=== PATIENT | female | born 1995 | race Caucasian/White ===

== ENCOUNTER 2020-01-19 16:02 | Outpatient (CLI) | payer SELFPAY ==
[~2020-01-19] VITALS: Ht 165.1 cm; Wt 93.6 kg
[2020-01-19 16:12] VITALS: BP 116/65
[2020-01-19] MEDS ORDERED: EFFE75CA2 PO (16:22)
[2020-01-19] MEDS ORDERED: PREN29TA4 PO (16:22)
[2020-01-19] MEDS ORDERED: ACET1TAB55 PO (16:22)
[2020-01-19] MEDS ORDERED: LOVE1INJ SC (16:22)
--- NOTE | 2020-01-19 22:21 | HPE ---
DATE OF ADMISSION: 01/19/2020 This is a 24-year-old 10, para 3, abortio 6, last menstrual period (LMP) 06/21/2019, estimated date of confinement 03/27/2020, at 30 and 2 weeks of gestation with a history of pelvic pressure, and has had a history of one delivery. Risk factors is she has had a previous section. She has had a late transfer of care. She has protein S deficiency, celiac disease, depression, on the Effexor, Rh negative, obesity, body mass index (BMI) is 31.2. Presently on Lovenox 40 and Effexor 75 extended release. PAST HISTORY: In 2016, at 39 weeks, spontaneous delivery, 8 pounds, required a revision of a fourth degree tear times two. In 2017, at 35 weeks, section, labor with premature rupture of membranes (PPROM), 6 pounds 5 ounces, baby is autistic. 2011 at 39 weeks, spontaneous vaginal delivery, 7 pounds 0 ounces, baby is autistic. Spontaneous , all occurred at 6+ weeks, two are methotrexate induced and four were spontaneous with no issues. Labs are O negative, HIV negative, RPR negative, rubella immune, hepatitis negative. Pap normal. Gonorrhea and chlamydia are negative. 1-hour glucose 124. [place] 21 was negative. On examination, no distress. She has multiple bruises on her abdomen from her injections. She is severely depressed despite the fact being on Effexor. Ultrasound indicated the YAYO was normal at 15.5. Symphysis fundus height was 30, vertex presenting. Cervix by endovaginal is 3.39 cm, with fundal pressure changed to 3.29. FFN was done. Digital examination: The cervix is closed, posterior, and the presenting part is high. Ultrasound, again, showed good movement. Blood pressure 116/65, respirations are 20, pulse 110, temperature is 97.3. Urine 1.015, pH is 7 and negative. Precautions were given. The patient has an appointment with [facility] in the near future. The patient was discharged undelivered.
== END 2020-01-19 17:56 | disposition home or self-care (01) ==
LOC: M LDO 16:02
PROVIDERS: ATTEND Obstetrics & Gynecology
DX: O26.893 Other specified pregnancy related conditions, third trimester (principal); R10.2 Pelvic and perineal pain; O99.343 Other mental disorders complicating pregnancy, third trimester; F32.9 Major depressive disorder, single episode, unspecified; Z67.41 Type O blood, Rh negative; Z3A.30 30 weeks gestation of pregnancy
CPT/HCPCS: 59025; 76815; 82731; G0378; G0463

== ENCOUNTER 2020-01-22 10:00 | Outpatient (CLI) | payer OTHER ==
[~2020-01-22] VITALS: Ht 165.1 cm; Wt 93.6 kg
[~2020-01-22 10:00] MED LIST: ACET1TAB55 PO; EFFE75CA2 PO; LOVE1INJ SC; PREN29TA4 PO
[2020-01-22 10:23] VITALS: BP 128/69
--- NOTE | 2020-01-23 13:52 | IPNPDOC ---
Text Note Date of Service The patient was seen on 01/23/20. NOTE seen and examined on 01/22/20 Patient is a 24 yo @30+wks gestation presents to L&D with concern for abdominal trauma. her child ran into her abdomen at 1000 this AM. patient reports this made her back pain worse and she is having cramping. denies LOF/VB . +FM vitals: normal nad abd: gravid, soft, nt le: no edema/erythema/tender fht: 130/mod neno/no accel/no decel TOCO: quiet a/p patient s/p minor trauma to abdomen, monitored for over 4hrs, no contractions, bleeding or discharge. patient given return precautions. f/u with regularly scheduled appointments. DO Aarti VS,Malena, I+O VS, Malena, I+O Vital Signs Date Time Temp Pulse Resp B/P (MAP) Pulse Ox O2 Delivery O2 Flow Rate FiO2 01/22/20 10:23 96.9 110 18 128/69 (88) Room Air YOBANY WATSON DO Jan 23, 2020 13:52
== END 2020-01-22 14:30 | disposition home or self-care (01) ==
LOC: M LDO 10:00
PROVIDERS: ATTEND Obstetrics & Gynecology
DX: Z04.3 Encounter for examination and observation following other accident (principal); W50.0XXA Accidental hit or strike by another person, initial encounter; Y93.9 Activity, unspecified; Y92.9 Unspecified place or not applicable; Y99.9 Unspecified external cause status
CPT/HCPCS: 59025; G0378; G0463

== ENCOUNTER 2020-02-06 08:28 | Inpatient (IN) | payer OTHER ==
[~2020-02-06] VITALS: Ht 165.1 cm; Wt 94.0 kg
[2020-02-06] VITALS (28 sets, daily range): BP systolic 92–122; BP diastolic 50–70
[2020-02-06] MEDS ORDERED: CALCIUM GLUCONATE 1,000 MG in D5W MINI-BAG PLUS 100 ML IV PRN (09:30)
[2020-02-06] MEDS ORDERED: MAG Sulf (L&D) 4 GM/100 ML 4 GM in IV 1 EA IV ONE (09:30)
[2020-02-06] MEDS ORDERED: TERBUTALINE SULFATE 1 MG/ML VIAL (J3105) SC SCH (09:30)
[2020-02-06] MEDS ORDERED: AMPICILLIN SOD 2 GM in D5W MINI-BAG PLUS 100 ML IV ONE (09:30)
[2020-02-06] MEDS: LR 1,000 ML IV SCH ×2 (10:38→17:32)
[2020-02-06] MEDS: BETAMETHASONE SOLUSPAN 6MG/ML 5ML VIAL (J0702 PER 3MG) IM SCH (10:52)
[2020-02-06 10:57] LABS: BASO % 0.3 % (0.0-1.0); EOS # 0.2 10^3/uL (0.0-0.5); EOS % 1.4 % (0.0-3.0); HEMOGLOBIN 12.4 g/dl (12.0-15.5); LYMPH # 1.5 10^3/uL (1.5-5.0); LYMPH % 12.6 % (24.0-44.0); MEAN CORPUSCULAR HEMOGLOBIN 29.8 pg (27.0-33.0); MEAN CORPUSCULAR HGB CONC 33.5 g/dl (32.0-36.5); MEAN CORPUSCULAR VOLUME 88.9 fl (80.0-96.0); MONO # 0.7 10^3/uL (0.0-0.8); MONO % 6.4 % (0.0-5.0); NEUTROPHILS % 78.1 % (36.0-66.0); PLATELET COUNT, AUTOMATED 226 10^3/uL (150-450); RED BLOOD COUNT 4.16 10^6/uL (4.00-5.40); WHITE BLOOD COUNT 11.5 10^3/uL (4.0-10.0)
[2020-02-06] MEDS: MAG Sulf (OBGYN) 20GM/500ML 20,000 MG in IV 1 EA IV SCH ×2 (11:16→20:50)
[2020-02-06 11:24] LABS: MAGNESIUM LEVEL 1.9 MG/DL (1.8-2.4)
--- NOTE | 2020-02-06 11:56 | REP ---
OB ULTRASOUND: Real-time sonographic evaluation of the gravid uterus is performed. There is a single living intrauterine gestation. The estimated gestational age is reportedly 32 weeks 6 days, EDC 03/27/2020. Today's measurements indicate appropriate growth. Biometry and Growth: BPD 86 mm = 34 weeks 3 days, 73rd percentile HC 315 mm = 35 weeks 3 days, 87th percentile AC 307 mm = 35 weeks 5 days, 77th percentile FL 65 mm = 33 weeks 2 days, 56th percentile HC/AC ratio 1.03 within normal range of 0.95 to 1.14. Estimated weight 2409 grams, 73rd percentile. Cervical length: Cervix could not be visualized. heart rate: 128 beats per minute. position: Vertex. Placenta: Anterior and grade 1 with no previa or abruption. Amniotic fluid: There is anhydramnios with no amniotic fluid present, YAYO is 0. Biophysical profile score: 6/8 with no points for amniotic fluid volume. S/D ratio: 2.58, normal range 2.05 to 3.05. RI: 0.61, normal range 0.59 to 0.75. Visualized anatomy today includes four-chamber heart, stomach, kidneys, bladder, and spine, which are grossly unremarkable. Electronically Signed by Sam Kaufman MD 02/08/2020 11:07 P
--- NOTE | 2020-02-06 13:27 | HPEPDOC ---
Obstetrical History & Physical General Date of Admission Feb 06, 2020 at 09:13 History of Present Illness S: Jessica is a 24yo at 32+6 weeks gestation, EDC [id number] by LMP/1TUS, who is being admitted to [facility] for PPROM. Pt reports that she woke up and noticed she was leaking copious fluid at 0730 this morning. She reports intercourse last night, but states she has also soaked two overnight menstrual pads. She has also been feeling mild contractions since ROM. complicated by the following: Protein S deficiency (on Lovenox, last administered [id number] in the evening) Rh Negative (O negative, rhogam administered [id number]) History of 35 week section (two previous , uncomplicated) Obesity and Excessive Weight Gain Chief Complaint: Rupture of membranes Information Provided By: Patient Age: 24 : 10 Term: 2 Pre-term: 1 Abortions: 6 Livin Care Care: Good Care Number of Visits: 5 Dating Final EDC: Mar 27, 2020 Final EDC for Daily Update: Mar 27, 2020 Final EDC by: LMP Antepartum Course Height (inches): 65 Pre- weight (lbs.): 181 Admission Weight (lbs.): 208 Change in Weight (lbs.): 27 Past Medical History Past Obstetrical History : Past Obstetrical History: Multigravida Complications: Yes (4th degree laceration with 2nd that required perineal revision.) 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 Past Medical History Medical History Protein S Deficiency Celiac Disease Obese Surgical History: section, Other Family History Significant Family History: No pertinent family hx Social History Marital Status: Family situation: Spouse/partner home Psychosocial History: Depression * Smoker: non-smoker Alcohol: Denies Drugs: denies Imunizations Tdap status: current Allergies Coded Allergies: NUTS (Verified Allergy, Severe, 01/19/20) latex (Verified Allergy, Intermediate, rash, 01/19/20) gluten (Verified Allergy, Mild, 01/19/20) Medications Scheduled Prenat 115/Iron Fum/Folic/Dss ( 19 Tablet) 1 Each Tablet, 1 TAB PO DAILY Venlafaxine HCl (Effexor Xr) 75 Mg Cap.er.24h, 1 CAP PO DAILY Miscellaneous Medications Enoxaparin Sodium (Lovenox) 40 Mg/0.4 Ml Syringe, 40 MG SC Physical Examination Physical Examination GENERAL: Alert and oriented times three. ABDOMEN: Gravid and non-tender to touch. FETUS: Is vertex (VTX) by sterile vaginal examination and by formal growth US. HEART RATE: Regular rate. LUNGS: Observed nonlabored breathing. EXTREMITIES: No edema. Other physical findings O: VSS, afebrile, normotensive FHR 140s, minimal variability (has had adequate moderate variability prior to magnesium), No current accels or decels CTX: occasional noted on TOCO VE: /- SSE: copius amniotic fluid in vaginal vault BPP: 68 d/t no amniotic fluid; EFW 2409g Vital Signs/I&O Vital Signs Date Time Temp Pulse Resp B/P (MAP) Pulse Ox O2 Delivery O2 Flow Rate FiO2 02/06/20 13:00 98.1 18 02/06/20 12:59 93 109/62 (78) Laboratory Data 24H LABS Laboratory Tests 2 02/06/20 09:31: Serology Scanned Report Hepatitis B Testing 02/06/20 10:30: Immature Granulocyte % (Auto) 1.2, Neutrophils (%) (Auto) 78.1H, Lymphocytes (%) (Auto) 12.6L, Monocytes (%) (Auto) 6.4H, Eosinophils (%) (Auto) 1.4, Basophils (%) (Auto) 0.3, Neutrophils # (Auto) 9.0H, Lymphocytes # (Auto) 1.5, Monocytes # (Auto) 0.7, Eosinophils # (Auto) 0.2, Basophils # (Auto) 0.0, Nucleated Red Blood Cells % (auto) 0.0, Magnesium Level 1.9, Syphilis Serology NONREACTIVE 02/06/20 12:25: CBC/BMP Laboratory Tests 02/06/20 10:30 Microbiology Microbiology 02/06/20 Group B Streptococcus Screen (NIGEL), Received Pending 02/06/20 Wet Prep, Received Pending Pertinent Laboratoy Data Blood Type: O- RBC Antibody Screen: Positive HIV: Negative Hepatitis B: Negative Rapid Plasma Reagin: Nonreactive Rubella: Immune Varicella: Immune Chlamydia/Gonorrhea: Negative Group B Streptococcus: Unknown Quad Screen Test: Negative Cystic Fibrosis: Negative Anatomy Ultrasound Ultrasound Date: Nov 18, 2019 Placenta Location: Anterior Normal Anatomy: Yes Placenta Previa: No Other Ultrasounds [id number] - f/u for missing images: still some inadequate facial views, but appears to be grossly unremarkable. Steroid Therapy Steroid Therapy: Yes Date #1: Feb 06, 2020 (Initial dose) Vaginal Examination Presentation: Cephalic presentation Assessment/Plan Assessment A: Jessica is a 24yo at 32+6wks admitted for PPROM, clear fluid, VSS, afebrile. GBS unknown. O Negative Blood Type. Protein S deficiency, last dose of Lovenox [id number]. Currently Category II FHT d/t minimal variability, but overall reassuring. Plan P: Pt consented for admission by Dr. Lewis (see note) PIV start, admission labs collected Wet Prep, GBS collected, urine tox screen and UC collected Growth US and BPP Start Ampicillin Start Magnesium Sulfate STOP Lovenox Start Betamethasone Clear liquid diet CEFM x2 Can administer terb if starts everadro Plan for repeat C/S when appropriate Comanage with OB SAVANNAH GONGORA CNM Feb 06, 2020 13:27
[2020-02-06] MEDS: AMPICILLIN SOD 1 GM in D5W 50 ML IV SCH ×3 (13:54→22:02)
--- NOTE | 2020-02-06 14:31 | IPNPDOC ---
Text Note Date of Service The patient was seen on 02/06/20. NOTE I d/w patient options of TOLAC vs delivery if PTL occurs. She under stands risks of infection, bleeding needing a blood transfusion (risk of reaction, infectious dz), damage to adjacent structures including baby, scarring, future pain, anesthesia reaction, , and need for future sections. She desires a repeat section with BTL. She understands that BTL is permanent infertility, failure rate of 1/250, and regreat possibility with age <30yo. VS,Fishbone, I+O VS, Fishbone, I+O Laboratory Tests 02/06/20 10:30 Vital Signs Date Time Temp Pulse Resp B/P (MAP) Pulse Ox O2 Delivery O2 Flow Rate FiO2 02/06/20 13:00 98.1 18 02/06/20 12:59 93 109/62 (78) Bina Lewis MD Feb 06, 2020 14:31
[2020-02-06 16:14] LABS: AMPHETAMINES URINE REFLEX NEGATIVE (NEGATIVE); BARBITURATES URINE REFLEX NEGATIVE (NEGATIVE); BENZODIAZEPINES URINE REFLEX NEGATIVE (NEGATIVE); CANNABINOIDS URINE REFLEX NEGATIVE (NEGATIVE); COCAINE METABOLITE URINE REFLE NEGATIVE (NEGATIVE); METHADONE URINE REFLEX NEGATIVE (NEGATIVE); OPIATES URINE REFLEX NEGATIVE (NEGATIVE); PHENCYCLIDINE URINE REFLEX NEGATIVE (NEGATIVE)
[2020-02-06] MEDS: ACETAMINOPHEN 500 MG TAB PO PRN (20:50)
[2020-02-06] MEDS: VENLAFAXINE **XR** 75MG CAPSULE PO SCH (20:52)
[2020-02-07] VITALS (32 sets, daily range): BP systolic 83–118; BP diastolic 46–60
[2020-02-07] MEDS: AMPICILLIN SOD 1 GM in D5W 50 ML IV SCH ×6 (02:44→22:00)
--- NOTE | 2020-02-07 03:06 | IPNPDOC ---
Text Note Date of Service The patient was seen on 02/07/20. NOTE S: Min LOF continues. No VB. +FM. No contractions. O: AF, VS WNL ABD gravid, NT SVE Deferred LE NT, SCDS in place FHT: Category 1, 120s, reactive, no decels, rare ctx A/P: 24yo at 33.0wks HD 2. She is s/p Dexa x1, US 02/06/2020 vtx, YAYO 0, EFW consistent. Day 2 of Ampicillin for latent Abx tx and will continue. On magnesium sulfate for neuroprotection and will continue. Continue to observe. VS,Fishbone, I+O VS, Fishbone, I+O Laboratory Tests 02/06/20 10:30 Vital Signs Date Time Temp Pulse Resp B/P (MAP) Pulse Ox O2 Delivery O2 Flow Rate FiO2 02/06/20 13:00 98.1 18 02/06/20 12:59 93 109/62 (78) Bina Lewis MD Feb 06, 2020 15:34
[2020-02-07] MEDS: LR 1,000 ML IV SCH ×3 (06:02→17:22)
[2020-02-07] MEDS: MAG Sulf (OBGYN) 20GM/500ML 20,000 MG in IV 1 EA IV SCH (06:37)
[2020-02-07] MEDS: ACETAMINOPHEN 500 MG TAB PO PRN ×2 (07:23→21:06)
[2020-02-07] MEDS: BETAMETHASONE SOLUSPAN 6MG/ML 5ML VIAL (J0702 PER 3MG) IM SCH (10:14)
[2020-02-07] MEDS ORDERED: SLF 3 ML SYR IV PRN (15:00)
[2020-02-07] MEDS ORDERED: VENLAFAXINE 37.5 MG TAB PO SCH (20:00)
[2020-02-07 20:37] LABS: HEMATOCRIT 33.7 % (36.0-47.0); HEMOGLOBIN 11.3 g/dl (12.0-15.5); MEAN CORPUSCULAR HGB CONC 33.5 g/dl (32.0-36.5); MEAN CORPUSCULAR VOLUME 89.4 fl (80.0-96.0); PLATELET COUNT, AUTOMATED 219 10^3/uL (150-450); RED BLOOD COUNT 3.77 10^6/uL (4.00-5.40); WHITE BLOOD COUNT 15.6 10^3/uL (4.0-10.0)
[2020-02-07] MEDS: VENLAFAXINE **XR** 75MG CAPSULE PO SCH (20:58)
[2020-02-07] MEDS: SLF 3 ML SYR IV SCH (22:01)
[2020-02-07] MEDS ORDERED: hydrOXYzine 50 MG TAB PO ONE (23:15)
[2020-02-08] VITALS (12 sets, daily range): BP systolic 84–119; BP diastolic 39–66
[2020-02-08] MEDS: LR 1,000 ML IV SCH ×2 (01:22→19:29)
[2020-02-08] MEDS: AMPICILLIN SOD 1 GM in D5W 50 ML IV SCH ×6 (01:59→21:55)
[2020-02-08] MEDS: SLF 3 ML SYR IV SCH ×3 (06:08→21:56)
--- NOTE | 2020-02-08 07:18 | IPN ---
DATE: 02/07/2020 This lady is a 24-year-old, and on reviewing her chart appears to be 7, para 3, abortus 2, despite the fact that she claims to have had six prior spontaneous abortions prior to actually being . She is presently at 33 and one weeks' of gestation. She had documented premature rupture of membranes with no contractions. Her is complicated by the fact that she has a protein S deficiency and is on Lovenox. She is Rh negative. She has had a previous section because she had a fourth degree tear which was repaired and for the next she had an elective primary section because of her previous trauma. She has had two spontaneous vaginal deliveries. Vaginally the largest baby was 8 pounds, the smallest one was 6 pounds, 5 ounces, and she had a 2014 39 weeker at 7 pounds. She has celiac disease. She has got depression and which she is on Effexor. She has had one baby at 35 weeks and she had a planned apparently section for 03/22/2020. However, things have changed in that she has had P-PROM at 33 weeks of gestation. On evaluation presently, she is on magnesium sulfate for prophylaxis neurologically. She is on prophylaxis antibiotics ampicillin and she is prophylactically being treated for lung maturity with steroids, her second dose is due at 11 a.m. She has been on the monitor and has had category one strip, the occasional tightening but not really a contraction. She has had an ultrasound, formal, which indicated a live intrauterine with a heart rate of 128, estimated weight of 2409 grams which is in the 73rd percentile, no fluid, of course, which gives her a biophysical of 6/8 and there are no visible contractions on the ultrasound. The lab work that she had done, her white count was 11.5, hemoglobin 12.4, hematocrit 37.0, platelets were 226. Her chemistry, they were following her magnesium level, which is 1.9, at the present time. The patient is on sequentials, is going to the bathroom and voiding, otherwise is on bedrest. We have increased her diet because she is not actually having contractions and we discussed the plan of care with the patient. Her main concern was four fold. One is she had had a previous repair of a fourth degree and a revision and is concerned that if she has a vaginal delivery that may cause significant issues, although the baby is nowhere near the size of any of her vaginal or section babies' weights. She is also concerned that she wants to have a tubal ligation and she is concerned about her diastasis recti. In any event, we tried to explain to her that the baby's well-being, that we are most concerned with at the present time, and tubal ligation and diastasis recti are secondary to the event. Our plan of management is to make her steroid complete, magnesium prophylaxis for neurologic prophylaxis, antibiotic coverage as needed for pending infection and we will repeat her blood work after her second dose of steroids as that may influence her white count. Presently, her vital signs: Her blood pressure is 97/52, respirations are 16, pulse is 89, and her temperature is 98.0. In summary, we have a 33.1 week gestation with the P-PROM, vertex presenting, neurologic prophylaxis in place, antibiotics in place, and steroids pending. We answered all the patient's questions. We had a 40-minute discussion and at the present time the status quo maintains that it is safe to proceed.
[2020-02-08] MEDS ORDERED: OXYTOCIN DRIP 30 UNITS in IV 1 EA IV SCH (11:30)
--- NOTE | 2020-02-08 12:03 | IPN ---
DATE: 02/08/2020 To review, this lady is a 24-year-old, appears to be 7, para 3, abort 2. She presented at 33 weeks and 1 day with the premature rupture of membranes (PROM) and it was documented. She has complicating factors in that she has protein S deficiency, is on Lovenox, Rh negative, two previous sections because had a fourth degree tear which was repaired and she had an elective primary section because of her previous trauma. She was placed on magnesium sulfate for neuro prophylaxis. She has been placed on antibiotics for prophylaxis and she was steroid complete. She has been monitored ever since and has had a category 1 strip. She has been afebrile. Her white count has been stable. No chills. No fever. No contractions. The plan of management today is to allow her to shower and be off the monitor for a period of 4 hours as to oppose continuous as the baby has been reactive and has had no signs of any distress. Also, we will saline lock her IV, maintain a diet and reevaluate on a regular basis. The patient is adamant about having a section because of her previous trauma to the vagina and repair, and she also was focusing on tubal ligation and diastasis recti. We explained to her that as long as status quo is met she is at 33 and 2 today with no evidence of reason at the present time to repeat the section unless pushed by white count, fever, contractions, allowing the Lovenox to wear off, which takes approximately 24 hours, as she would be at significant risk for bleeding and there is no way to evaluate the effects of the Lovenox at the present time. The patient expressed somewhat an understanding of what was going on. She was complaining that she is tired, she says the baby is tired of being monitored and so as an option we will monitor every 4 hours with the monitor and will do her temperature every 2 hours. We spent a good 20-25 minutes trying to explain the plan of care.
[2020-02-08] MEDS: VENLAFAXINE **XR** 75MG CAPSULE PO SCH (20:45)
[2020-02-08] MEDS ORDERED: hydrOXYzine 50 MG TAB PO ONE (22:15)
[2020-02-09] VITALS (10 sets, daily range): BP systolic 78–122; BP diastolic 41–67
[2020-02-09] MEDS: LR 1,000 ML IV SCH ×2 (01:22→09:22)
[2020-02-09] MEDS: AMPICILLIN SOD 1 GM in D5W 50 ML IV SCH ×2 (01:54→05:56)
[2020-02-09] MEDS: SLF 3 ML SYR IV SCH ×3 (05:57→22:00)
[2020-02-09 06:39] LABS: HEMATOCRIT 34.1 % (36.0-47.0); MEAN CORPUSCULAR HEMOGLOBIN 29.6 pg (27.0-33.0); MEAN CORPUSCULAR HGB CONC 32.3 g/dl (32.0-36.5); MEAN CORPUSCULAR VOLUME 91.9 fl (80.0-96.0); PLATELET COUNT, AUTOMATED 194 10^3/uL (150-450); RED BLOOD COUNT 3.71 10^6/uL (4.00-5.40); WHITE BLOOD COUNT 11.1 10^3/uL (4.0-10.0)
[2020-02-09] MEDS ORDERED: HEPARIN SOD (PORCINE) 5000UNITS/ML VIAL (J1644 PER 1000UNITS) SQ SCH (09:00)
[2020-02-09] MEDS ORDERED: AZITHROMYCIN 250MG TABLET PO ONE (10:00)
[2020-02-09 10:31] LABS: INR 1.04; PARTIAL THROMBOPLASTIN TIME 24.8 SECONDS (25.0-38.4); PROTHROMBIN TIME 13.3 SECONDS (11.8-14.0)
[2020-02-09] MEDS: HEPARIN SOD (PORCINE) 5000UNITS/ML VIAL (J1644 PER 1000UNITS) SQ SCH ×2 (11:23→21:23)
--- NOTE | 2020-02-09 11:31 | IPNPDOC ---
Text Note Date of Service The patient was seen on 02/09/20. NOTE Accept care from Dr. Allan Jessica is a 24yo at 33+2 weeks gestation, EDC [id number] by LMP/1TUS admitted at 32+6wks for PPROM. Patient today denies feeling ctx. She has been on ampicillin for latency antibiotics. patient has history of prior delivery due to history of 4th degree laceration with repair x 2. patient desires to have a repeat delivery. She is betamethasone complete. patient has been on Lovenox 40mg SC daily for history of protein S def. no erythromycin nor azithromycin given per chart review. vitals: normal NAD cta s w/r/r S1S2 s m/g/c abd: gravid, soft, nt NST: Reactive growth scan done on admission shows appropriate growth. GBS neg a/p patient is at 33+2wks with PPROM. > 48hrs of IV antibiotics. Will start on PO for next 5 days for 7 days complete of latency. azithromycin 1gm po x 1. amoxicillin 875mg BID. start heparin 00223 Units q12hrs. follow aptt for < 40. discussed with patient indications for delivery would be s/s of infection as well as labor. Discussed prolonged time in NICU as well as increased morbidity with earlier delivery. Will continue with intermittent monitoring. will transition to BID NST later tonight if baby remains reactive. all questions answered. DO Aarti VS,Malena, I+O VS, Malena, I+O Laboratory Tests 02/09/20 06:28 Vital Signs Date Time Temp Pulse Resp B/P (MAP) Pulse Ox O2 Delivery O2 Flow Rate FiO2 02/09/20 09:34 98.0 95 114/59 (77) 02/09/20 08:08 18 I&O- Last 24 Hours up to 6 AM 02/09/20 05:59 Intake Total 600 ml Output Total 1025 ml Balance -425 ml YOBANY WATSON DO Feb 09, 2020 11:31
[2020-02-09 19:15] LABS: INR 1.06; PROTHROMBIN TIME 13.5 SECONDS (11.8-14.0)
[2020-02-09 19:16] LABS: PARTIAL THROMBOPLASTIN TIME 26.1 SECONDS (25.0-38.4)
[2020-02-09] MEDS: AMOXICILLIN 875 MG TAB PO SCH (21:23)
[2020-02-09] MEDS: VENLAFAXINE **XR** 75MG CAPSULE PO SCH (21:23)
[2020-02-10 02:00] VITALS: BP 98/57
[2020-02-10 06:00] VITALS: BP 118/62
[2020-02-10] MEDS: SLF 3 ML SYR IV SCH ×3 (06:17→21:10)
--- NOTE | 2020-02-10 07:17 | IPNPDOC ---
Text Note Date of Service The patient was seen on 02/10/20. NOTE Jessica is a 24yo at 33+3 weeks gestation, EDC [id number] by LMP/1TUS admitted at 32+6wks for PPROM. Patient today denies feeling ctx. Has not been sleeping well. Patient anxious waiting longer for delivery. Her spouse has to be home to care for their 3 children at home. She is betamethasone complete. Meds: amoxicillin 875mg BID UFH [id number] Q12 vitals: normal NAD abd: gravid, soft, nt NST: on going growth scan done on admission shows appropriate growth. GBS neg a/p patient is at 33+3wks with PPROM. Discussed at length with patient regarding indication for delivery to include concern for /maternal well being, signs /symptom of labor as well as infection. Given no indication to deliver sooner, the usual recommendation is to wait at least until 34 weeks gestation to improve outcome. Discussed increase NICU state with early delivery. Waiting longer increases risks of infection. After discussion and weighing all risks and benefits, patient would like to have delivery scheduled for 34wks gestation. Plan for the remainder of time. 1. twice daily NST 2. amoxicillin for latency (5 days course) 3. UFH 10,000U q12hrs, get APTT every 3 days (labs should be drawn 6hrs after last dose) 4. q4hrs vitals with temp 5. q3days cbc and type & screen. should coordinate all labs draw together 6. delivery sooner if concerning for labor, infection, non reassuring sta tus. DO Aarti VS,Malena, I+O VS, Evane, I+O Vital Signs Date Time Temp Pulse Resp B/P (MAP) Pulse Ox O2 Delivery O2 Flow Rate FiO2 02/10/20 06:00 97.1 84 16 118/62 (80) 97 Room Air YOBANY WATSON DO Feb 10, 2020 07:17
[2020-02-10] MEDS: AMOXICILLIN 875 MG TAB PO SCH ×2 (09:00→21:07)
[2020-02-10] MEDS: HEPARIN SOD (PORCINE) 5000UNITS/ML VIAL (J1644 PER 1000UNITS) SQ SCH ×2 (09:20→21:10)
[2020-02-10 10:00] VITALS: BP 120/57
[2020-02-10 18:00] VITALS: BP 104/56
[2020-02-10] MEDS: VENLAFAXINE **XR** 75MG CAPSULE PO SCH (21:07)
[2020-02-10 22:11] VITALS: BP 102/61
[2020-02-11 02:33] VITALS: BP 93/53
[2020-02-11] MEDS: SLF 3 ML SYR IV SCH ×2 (05:29→13:46)
[2020-02-11 06:05] VITALS: BP 92/51
[2020-02-11] MEDS: HEPARIN SOD (PORCINE) 5000UNITS/ML VIAL (J1644 PER 1000UNITS) SQ SCH ×2 (09:14→20:34)
[2020-02-11] MEDS: AMOXICILLIN 875 MG TAB PO SCH ×2 (09:14→20:33)
[2020-02-11 10:00] VITALS: BP 113/60
[2020-02-11 13:34] VITALS: BP 105/59
[2020-02-11 15:29] LABS: PROTHROMBIN TIME 12.9 SECONDS (11.8-14.0)
[2020-02-11 17:58] VITALS: BP 104/58
[2020-02-11] MEDS: VENLAFAXINE **XR** 75MG CAPSULE PO SCH (20:34)
[2020-02-11] MEDS: ACETAMINOPHEN 500 MG TAB PO PRN (20:40)
[2020-02-11 22:06] VITALS: BP 89/50
[2020-02-12 01:54] VITALS: BP 92/50
[2020-02-12 05:59] VITALS: BP 108/67
[2020-02-12] MEDS: SLF 3 ML SYR IV SCH ×4 (06:00→22:08)
[2020-02-12 08:04] LABS: HEMATOCRIT 39.2 % (36.0-47.0); MEAN CORPUSCULAR HEMOGLOBIN 29.3 pg (27.0-33.0); MEAN CORPUSCULAR HGB CONC 33.2 g/dl (32.0-36.5); MEAN CORPUSCULAR VOLUME 88.3 fl (80.0-96.0); PLATELET COUNT, AUTOMATED 259 10^3/uL (150-450); RED BLOOD COUNT 4.44 10^6/uL (4.00-5.40)
[2020-02-12] MEDS: AMOXICILLIN 875 MG TAB PO SCH ×2 (08:56→20:24)
[2020-02-12] MEDS: HEPARIN SOD (PORCINE) 5000UNITS/ML VIAL (J1644 PER 1000UNITS) SQ SCH ×2 (08:57→20:24)
--- NOTE | 2020-02-12 10:58 | IPN ---
DATE: 02/12/2020 This lady is antepartum day #6. She is a 24-year-old, 7, para 3, who is presently at 33 and 5 weeks of gestation with a planned repeat section on 02/14/2020, 2000 hours, because of premature rupture of membranes. She has presently been here being monitored for contractions, premature rupture of membranes, and monitoring for infection. She had previously been on Lovenox because of protein S deficiency and discontinued that on 02/05/2020. She is Rh negative. She was given RhoGAM. She had a previous section because of a fourth degree tear repair. She has had two previous spontaneous vaginal deliveries. Presently her vital signs, her blood pressure is 108/67, respirations are 18, pulse 94, temperature 97.0. She has never been febrile. In monitoring her lab work, her CBC admitting hemoglobin was 12.4, hematocrit 37.0 and platelets were 226. She had an initial white count of 11.5. On 02/09/2020, her white count was 11.1, hemoglobin 11.0, hematocrit 34.1 and platelets were 194. She has continuously had monitoring now every 4 hours. She has a NST. The last one done at 0600 hours was a category 1 strip with no contractions, no decelerations. Accelerations were noted. She has definitely ruptured membranes and has a slightly increased amount of clear liquor nonodorous, no contractions, and presently is awaiting her repeat section on Sunday. She had an ultrasound on 02/06/2020, which was 6 days ago, indicated an estimated weight at 2409 grams, 73rd percentile. Cervix was not visualized because of the presenting part well against the cervix. She had no fluid noted. ST ratio, RI index were normal. Minimal evaluation of the cardiac anatomy showed a four chamber heart. Stomach, kidneys, bladder, spine were all unremarkable. At that time, the presenting part was vertex. She has had no further imaging done and is presently awaiting her repeat section. The patient is stable. Baby is in good position with a good NST.
[2020-02-12] MEDS: ACETAMINOPHEN 500 MG TAB PO PRN (20:24)
[2020-02-12] MEDS: VENLAFAXINE **XR** 75MG CAPSULE PO SCH (20:24)
[2020-02-12 23:00] VITALS: BP 96/49
[2020-02-13 02:00] VITALS: BP 107/56
[2020-02-13 06:00] VITALS: BP 111/56
--- NOTE | 2020-02-13 06:41 | IPNPDOC ---
Text Note Date of Service late entry The patient was seen on 02/11/20. NOTE Jessica is a 24yo at 33+4 weeks gestation, EDC [id number] by LMP/1TUS admitted at 32+6wks for PPROM. Patient today without new concerns She is betamethasone complete. Meds: amoxicillin 875mg BID UFH [id number] Q12 vitals: normal NAD abd: gravid, soft, nt NST: reactive growth scan done on admission shows appropriate growth. GBS neg a/p patient is at 33+4wks with PPROM. continue antepartum care. Plan for the remainder of time. 1. twice daily NST 2. amoxicillin for latency (5 days course) 3. UFH 10,000U q12hrs, get APTT every 3 days (labs should be drawn 6hrs after last dose) 4. q4hrs vitals with temp 5. q3days cbc and type & screen. should coordinate all labs draw together 6. plan for repeat section at 34 wks. delivery sooner if concerning for labor, infection, non reassuring status. DO Aarti VS,Evane, I+O VS, Fishbone, I+O Laboratory Tests 02/12/20 07:41 Vital Signs Date Time Temp Pulse Resp B/P (MAP) Pulse Ox O2 Delivery O2 Flow Rate FiO2 02/13/20 06:00 97.5 102 18 111/56 (74) 02/13/20 02:00 96 Room Air YOBANY WATSON DO Feb 13, 2020 06:41
--- NOTE | 2020-02-13 07:52 | IPNPDOC ---
Text Note Date of Service The patient was seen on 02/13/20. NOTE S: LOF continues. No VB. +FM. Few contractions per day. Continues to desire Celiac work up despite knowing she has Celiac disease. O: AF, VS WNL ABD gravid, NT SVE Deferred LE NT, SCDS in place FHT: Category 1, 120s, reactive, no decels, rare ctx A/P: 24yo at 33.6wks HD 7. Fetus reassurring. No evidence of infection. She is s/p Dexa, US 02/06/2020 vtx, YAYO 0, EFW consistent. S/p latent Abx. Continue to observe. I explained that we are not the appropriate service for a Celiac work up and it is not urgent. This can be done as an outpatient via her PCM. She states that she knows more about OB studies than us and is more up to date and states that Gluten can harm a fetus through transmission through the placenta. I explained that we direct our care based upon ACOG which are National guidelines and I would be open to such recommendations if she could produce such evidence via ACOG Guidelines. VS,Fishbone, I+O VS, Fishbone, I+O Vital Signs Date Time Temp Pulse Resp B/P (MAP) Pulse Ox O2 Delivery O2 Flow Rate FiO2 02/13/20 06:00 97.5 102 18 111/56 (74) 02/13/20 02:00 97.1 88 18 107/56 (73) 96 Room Air 02/12/20 23:00 97.1 54 16 96/49 (65) 97 Room Air Microbiology 02/06/20 Urine Culture - Final, Complete 02/06/20 Group B Streptococcus Screen (NIGEL) - Final, Complete 02/06/20 Wet Prep - Final, Complete Current Medications Medications (Trade) Dose Ordered Sig/Jesus Route PRN Reason Start Time Stop Time Status Last Admin Dose Admin Acetaminophen (Tylenol Tab) 1,000 mg Q8HP PRN PO PAIN / FEVER 02/06/20 20:45 02/12/20 20:24 1,000 MG Amoxicillin (Amoxicillin) 875 mg BID PO 02/09/20 21:00 02/14/20 20:59 02/12/20 20:24 875 MG Heparin Sodium (Porcine) (Heparin) 10,000 units Q12H SQ 02/09/20 09:00 02/12/20 20:24 10,000 UNITS Sodium Chloride (Saline Lock Flush) 2 ml SLF IV 02/07/20 22:00 02/12/20 22:08 2 ML Venlafaxine HCl (Effexor Xr) 75 mg QHS PO 02/06/20 21:00 02/12/20 20:24 75 MG Laboratory Tests 02/12/20 07:41 Vital Signs Date Time Temp Pulse Resp B/P (MAP) Pulse Ox O2 Delivery O2 Flow Rate FiO2 02/12/20 05:59 97.0 94 18 108/67 (81) 98 Room Air I&O- Last 24 Hours up to 6 AM 02/12/20 06:00 Output Total 250 ml Balance -250 ml Bina Lewis MD Feb 12, 2020 20:44
[2020-02-13] MEDS: SLF 3 ML SYR IV SCH ×3 (08:00→20:49)
[2020-02-13] MEDS: AMOXICILLIN 875 MG TAB PO SCH ×2 (08:02→20:48)
[2020-02-13] MEDS: HEPARIN SOD (PORCINE) 5000UNITS/ML VIAL (J1644 PER 1000UNITS) SQ SCH (08:06)
[2020-02-13 10:00] VITALS: BP 90/52
[2020-02-13 14:20] VITALS: BP 114/64
--- NOTE | 2020-02-13 17:14 | IPNPDOC ---
Text Note Date of Service The patient was seen on 02/13/20. NOTE patient is @ 33+6wks PPROM HD #8. patient without concerns. denies abdominal pain, ctx/vb. +FM. patient is scheduled for repeat section with bilateral tubal ligation tomorrow at 34wks. counseled patient on risks of section to include infection, bleeding requiring blood transfusion, injuring to surrounding organs, hysterectomy, need for repeat surgery discussed with patient. Bilateral tubal ligation will add time to surgery with risk of bleeding, failure rate < 0.1% with increased risk of ectopic if she become after BTL. BTL is meant to be permanent and there is high risk of regrets for women under age of 30. Patient expresses understanding. consent forms signed. DO GERARDO Broussard,Malena, I+O GERARDO, Malena, I+O Vital Signs Date Time Temp Pulse Resp B/P (MAP) Pulse Ox O2 Delivery O2 Flow Rate FiO2 02/13/20 14:20 98.3 122 18 114/64 (81) 02/13/20 10:00 95 Room Air YOBANY BROUSSARD DO Feb 13, 2020 17:14
[2020-02-13] MEDS: VENLAFAXINE **XR** 75MG CAPSULE PO SCH (20:48)
[2020-02-13 22:00] VITALS: BP 102/61
[2020-02-14] VITALS (9 sets, daily range): BP systolic 92–114; BP diastolic 56–68
[2020-02-14] MEDS: LR 1,000 ML IV SCH ×2 (00:06→08:23)
[2020-02-14] MEDS ORDERED: BICITRA 30ML SOLN UDC PO ONE (06:00)
[2020-02-14] MEDS ORDERED: ceFAZolin SOD 2 GM in IV 1 EA IV ONE (06:00)
[2020-02-14] MEDS: SLF 3 ML SYR IV SCH ×3 (06:00→21:04)
[2020-02-14 07:40] LABS: BASO % 0.2 % (0.0-1.0); EOS # 0.2 10^3/uL (0.0-0.5); EOS % 1.7 % (0.0-3.0); HEMATOCRIT 37.7 % (36.0-47.0); HEMOGLOBIN 12.9 g/dl (12.0-15.5); LYMPH # 2.1 10^3/uL (1.5-5.0); MEAN CORPUSCULAR HEMOGLOBIN 29.8 pg (27.0-33.0); MEAN CORPUSCULAR HGB CONC 34.2 g/dl (32.0-36.5); MEAN CORPUSCULAR VOLUME 87.1 fl (80.0-96.0); MONO # 0.7 10^3/uL (0.0-0.8); MONO % 6.3 % (0.0-5.0); NEUTROPHILS # 6.7 10^3/uL (1.5-8.5); NEUTROPHILS % 65.4 % (36.0-66.0); PLATELET COUNT, AUTOMATED 258 10^3/uL (150-450); RED BLOOD COUNT 4.33 10^6/uL (4.00-5.40); WHITE BLOOD COUNT 10.3 10^3/uL (4.0-10.0)
[2020-02-14] MEDS ORDERED: diphenhydrAMINE 50MG/ML VIAL (J1200) IV PRN (07:49)
[2020-02-14] MEDS ORDERED: ONDANSETRON 4MG/2ML VIAL IV PRN ×2 (07:49→10:30)
[2020-02-14] MEDS ORDERED: METOCLOPRAMIDE INJ 10MG/2ML VIAL (J2765 PER 1) IV PRN ×2 (07:49→10:30)
[2020-02-14] MEDS ORDERED: NALBUPHINE HCL 10 MG/ML AMP (J2300) IV PRN (07:49)
[2020-02-14] MEDS ORDERED: NALOXONE INJ 0.4MG/1ML VIAL (J2310 PER 1MG) IV PRN ×2 (07:49)
[2020-02-14 07:51] LABS: INR 1.03; PARTIAL THROMBOPLASTIN TIME 26.4 SECONDS (25.0-38.4); PROTHROMBIN TIME 13.2 SECONDS (11.8-14.0)
[2020-02-14] MEDS ORDERED: fentaNYL 100 MCG/2 ML INJECTION (J3010) As Ordered ONE (08:15)
[2020-02-14] MEDS ORDERED: MORPHINE PRES-FREE INJ 10 MG/10 ML VIAL (J2274) As Ordered ONE (08:15)
[2020-02-14] MEDS ORDERED: OXYTOCIN INJ 10 UNITS/ML VIAL (J2590) As Ordered ONE (08:15)
[2020-02-14] MEDS ORDERED: ONDANSETRON 4MG/2ML VIAL As Ordered ONE (09:10)
[2020-02-14] MEDS ORDERED: dexameTHASONE 4 MG/ML 1ML VIAL (J1100 PER 1MG) As Ordered ONE (09:10)
[2020-02-14] MEDS ORDERED: ePHEDrine SULFATE 25 MG/5 ML(5MG/ML) SYRINGE As Ordered ONE (09:12)
[2020-02-14] MEDS ORDERED: PHENYLephrine HCL 500 MCG/5 ML (100MCG/ML) SYRINGE (J2370) As Ordered ONE (09:12)
[2020-02-14] MEDS ORDERED: KETOROLAC 60MG 2ML VIAL As Ordered ONE (09:13)
[2020-02-14] MEDS ORDERED: PERCOCET 5MG/325MG TAB PO PRN ×3 (10:15→10:30)
[2020-02-14] MEDS ORDERED: MEASLES,MUMPS,RUBELLA VACCINE INJ (MMR-II) (90707) SC SCH (10:15)
[2020-02-14] MEDS ORDERED: RHOGAM 300 MCG (1500 IU) INJ (J2790) IM SCH (10:15)
--- NOTE | 2020-02-14 10:23 | DNPDOC ---
[facility] Delivery Note Delivery Note DATE OF DELIVERY: 02/14/20 PREDELIVERY DIAGNOSIS: 34+0/7 weeks' gestation and labor. POST DELIVERY DIAGNOSIS: Delivered. PROCEDURE: repeat section INSURANCE INVESTIGATOR: Dr. Yobany Broussard DO ANESTHESIA: spinal ESTIMATED BLOOD LOSS: 600mL. FINDINGS: female infant, Score 9/9. DELIVERY SUMMARY: Uncomplicated Repeat low transverse section with bilateral tubal ligation. See operative notes for details. OYBANY BROUSSARD DO Feb 14, 2020 10:23
[2020-02-14] MEDS ORDERED: OXYTOCIN DRIP 30 UNITS in IV 1 EA IV SCH (10:30)
[2020-02-14] MEDS ORDERED: fentaNYL 100 MCG/2 ML INJECTION (J3010) IV PRN (10:30)
[2020-02-14] MEDS ORDERED: LR 1,000 ML IV SCH ×2 (10:30→11:30)
[2020-02-14] MEDS ORDERED: OXYTOCIN 30 UNITS IN 0.9% NaCl 500ML IV BAG (J2590) As Ordered ONE (10:39)
[2020-02-14] MEDS: METHYLERGONOVINE MALEATE 0.2 MG TAB PO SCH ×3 (13:48→21:03)
[2020-02-14] MEDS: KETOROLAC 30 MG/ML 1ML VIAL IV SCH ×2 (15:04→21:03)
[2020-02-14] MEDS: VENLAFAXINE **XR** 75MG CAPSULE PO SCH (21:03)
[2020-02-15] VITALS (7 sets, daily range): BP systolic 88–110; BP diastolic 32–69
[2020-02-15] MEDS: METHYLERGONOVINE MALEATE 0.2 MG TAB PO SCH (01:30)
[2020-02-15] MEDS: KETOROLAC 30 MG/ML 1ML VIAL IV SCH ×2 (03:00→09:00)
--- NOTE | 2020-02-15 05:24 | IPNPDOC ---
Progress Note Date of Service: Feb 15, 2020 Day#: 1 Progress Note SUBJECT: Doing well without complaints. Ambulating, voiding and pain is well- controlled. Reports minimal lochia. OBJECTIVE: VITAL SIGNS: Within normal limits, afebrile. Alert and oriented times three. Abdomen: Fundus firm at U-2. Soft, NTTP. Incision: Dressed Ext: neg calf tenderness. ASSESSMENT: Postoperative/ day #1 status post repeat section with tubal ligation. Recovering in stable condition. PLAN: 1. Continue routine postoperative/ care 2. Resume Lovenox today VS, I&O, 24H, Fishbone Vital Signs/I&O Vital Signs Date Time Temp Pulse Resp B/P (MAP) Pulse Ox O2 Delivery O2 Flow Rate FiO2 02/15/20 01:53 97.3 78 18 102/60 (74) 98 02/14/20 18:00 Room Air I&O- Last 24 Hours up to 6 AM 02/15/20 05:59 Intake Total 2430 ml Output Total 1900 ml Balance 530 ml Laboratory Data 24H LABS Laboratory Tests 2 02/14/20 07:20: Immature Granulocyte % (Auto) 6.4H, Neutrophils (%) (Auto) 65.4, Lymphocytes (%) (Auto) 20.0L, Monocytes (%) (Auto) 6.3H, Eosinophils (%) (Auto) 1.7, Basophils (%) (Auto) 0.2, Neutrophils # (Auto) 6.7, Lymphocytes # (Auto) 2.1, Monocytes # (Auto) 0.7, Eosinophils # (Auto) 0.2, Basophils # (Auto) 0.0, Nucleated Red Blood Cells % (auto) 0.0, Prothrombin Time 13.2, Prothromb Time International Ratio 1.03, Activated Partial Thromboplast Time 26.4 CBC/BMP Laboratory Tests 02/14/20 07:20 Microbiology Microbiology 02/06/20 Urine Culture - Final, Complete 02/06/20 Group B Streptococcus Screen (NIGEL) - Final, Complete 02/06/20 Wet Prep - Final, Complete SAIDA ROSAS MD. Feb 15, 2020 05:24
[2020-02-15] MEDS: SLF 3 ML SYR IV SCH ×3 (05:29→20:29)
--- NOTE | 2020-02-15 08:46 | POST-OPPD ---
Postoperative Procedure Note Date Of Procedure: Feb 14, 2020 PREOPERATIVE DIAGNOSIS: 1. PPROM @ 34wks gestation 2. History of prior section desiring repeat 3. Satisfied parity POSTOPERATIVE DIAGNOSIS: 1. porsha FINDINGS: Cephalic, viable female infant, 9/9 PROCEDURE: 1. Repeat low transverse section with bilateral tubal ligation SURGEON: Skyler Broussard DO PELLETIZER TENDER: Susan Yao MD ANESTHESIA: Spinal SPECIMENS: bilateral fallopian tube segments ESTIMATED BLOOD LOSS: 600cc REPLACED: 1000cc DRAINS: 100cc COMPLICATIONS: none POSTOPERATIVE CONDITION: stable Description of procedure: The risks, benefits, indications and alternatives to the procedure were reviewed with the patient and informed consent was obtained. Spinal was dosed for surgical analgesic. She was prepped and draped in the normal sterile fashion in the dorsal supine position with a leftward tilt. The abdomen was entered along prior pfannenstiel incision. Sharp dissection down to the fascia layer. Fascia layer entered and carried lateral and upward bilaterally with pryor scissors. Superior border of fascia grasp with Krockers x 2 and a space between fascia and rectus muscle created bluntly and sharply. Inferior fascia layer grasp with Krockers x 2 and fascia from rectus muscle bluntly and sharply. Rectus muscles midline exposing peritoneum. Peritoneum entered sharply. The rectus muscles and peritoneum bluntly and sharply along midline and exposes the gravid uterus. Bladder reflection visualized. Bladder scarred over the lower uterine segment. Bladder flap created sharply and bluntly from uterine serosa. Wynne uterine incision made and bluntly extended. AROM clear. Head delivered through the hysterotomy. The anterior and posterior shoulders delivered followed by body with ease. The cord was clamped and cut. The was handed off to awaiting pediatric team. Pitocin bolus started. The placenta delivered with traction. Uterus exteriorized. The uterus was cleared of all clots and debris. The uterine incision was repaired with 1 Chromic in a running locking fashion with an imbricating layer using O monocryl. Incision inspected to be hemostatic. Bilateral fallopian tubes and ovaries identified, normal appearing. Midisthmus portion of Right fallopian tube identified. Mesosalpinx entered with cautery. Tube segment tied on both sides with plain gut. Tube segment cut and sent to path. Steps repeated on left side. Additional Uterus inspected to be hemostatic. Uterus placed intraabdominal. Gutters cleared of clots. The peritoneum, fascia and muscle bellies were inspected and noted to be hemostatic. The peritoneum approximated. The fascia approximated with 0 Vicryl in a running fashion. The subcutaneous tissue closed with 3-0 vicryl. The skin was closed with 4-0 monocryl. Dressing applied. The vagina was cleared of clots. Sponge laps, needle and instruments count correct x 2. Patient taken to recovery room in stable condition. DO SHIRLEY Broussard LUAT N. DO Feb 14, 2020 10:29
[2020-02-15] MEDS: PRENATAL VITAMINS CHEWABLE TABLET PO SCH (08:58)
[2020-02-15] MEDS: FERROUS SULFATE 325MG TAB PO SCH (08:58)
[2020-02-15] MEDS: ENOXAPARIN 40MG/0.4ML SYRINGE (J1650 PER 10MG) SC SCH (09:17)
[2020-02-15 09:22] LABS: HEMATOCRIT 34.2 % (36.0-47.0); HEMOGLOBIN 11.5 g/dl (12.0-15.5); MEAN CORPUSCULAR HEMOGLOBIN 29.9 pg (27.0-33.0); MEAN CORPUSCULAR HGB CONC 33.6 g/dl (32.0-36.5); MEAN CORPUSCULAR VOLUME 88.8 fl (80.0-96.0); PLATELET COUNT, AUTOMATED 236 10^3/uL (150-450); RED BLOOD COUNT 3.85 10^6/uL (4.00-5.40); WHITE BLOOD COUNT 13.6 10^3/uL (4.0-10.0)
--- NOTE | 2020-02-15 10:21 | IPNPDOC ---
Progress Note Date of Service: Feb 15, 2020 Day#: 1 Progress Note SUBJECT: patient is a 24 yo s/p RLTCD with BTL @ 34wks for PPROM, POD #1. She has been ambulating, voiding spontaneously without issue and tolerating regular diet. Baby in NICU. She is breast pumping. Patient thinks toradol made having itching yesterday after 2 doses and she declined medication. OBJECTIVE: VITAL SIGNS: Within normal limits, afebrile. Alert and oriented times three. Breath sounds clear to auscultation. Heart rate: Regular rate and rhythm, no murmurs, rubs or gallops. Abdomen: Fundus firm at U-2. Soft, appropriate tenderness to palpation. dressing on LE: no edema/erythema/tenderness A/P POD #1, doing well. Discussed with patient there may be different reasons for having itchiness post op, though since she is concerned, will start ibuprofen scheduled instead. Percocet PRN. She will be discharged home with this regiment for pain as well. continue with routine /postoperative care. anticipate d/c to boarding tomorrow. Aarti, VS, I&O, 24H, Fishbone Vital Signs/I&O Vital Signs Date Time Temp Pulse Resp B/P (MAP) Pulse Ox O2 Delivery O2 Flow Rate FiO2 02/15/20 09:30 18 02/15/20 05:39 98.6 88 91/56 (68) 98 02/14/20 18:00 Room Air I&O- Last 24 Hours up to 6 AM 02/15/20 06:00 Intake Total 2430 ml Output Total 1900 ml Balance 530 ml Laboratory Data 24H LABS Laboratory Tests 2 02/15/20 08:52: Nucleated Red Blood Cells % (auto) 0.0 CBC/BMP Laboratory Tests 02/15/20 08:52 Microbiology Microbiology 02/06/20 Urine Culture - Final, Complete 02/06/20 Group B Streptococcus Screen (NIGEL) - Final, Complete 02/06/20 Wet Prep - Final, Complete YOBANY WATSON DO Feb 15, 2020 10:11
[2020-02-15] MEDS: IBUPROFEN 800 MG TAB PO SCH ×2 (10:34→18:42)
[2020-02-15] MEDS ORDERED: IBUPROFEN 800 MG TAB PO SCH (17:00)
[2020-02-15] MEDS: VENLAFAXINE **XR** 75MG CAPSULE PO SCH (20:29)
[2020-02-16 02:05] VITALS: BP 98/52
[2020-02-16] MEDS: IBUPROFEN 800 MG TAB PO SCH (02:25)
[2020-02-16 06:00] VITALS: BP 95/63
[2020-02-16] MEDS: SLF 3 ML SYR IV SCH (06:00)
--- NOTE | 2020-02-16 07:28 | IPNPDOC ---
Progress Note Date of Service: Feb 16, 2020 Day#: 2 Progress Note UBJECT: patient is a 24 yo s/p RLTCD with BTL @ 34wks for PPROM, POD #2. She has been ambulating, voiding spontaneously without issue and tolerating regular diet. Baby in NICU. She is breast pumping. patient without concerns today. OBJECTIVE: VITAL SIGNS: Within normal limits, afebrile. Alert and oriented times three. Breath sounds clear to auscultation. Heart rate: Regular rate and rhythm, no murmurs, rubs or gallops. Abdomen: Fundus firm at U-2. Soft, appropriate tenderness to palpation. dressing on LE: no edema/erythema/tenderness A/P POD #1, doing well. Encourage breast pump. continue with routine /postoperative care. instructions given. d/c today. Aarti, VS, I&O, 24H, Fishbone Vital Signs/I&O Vital Signs Date Time Temp Pulse Resp B/P (MAP) Pulse Ox O2 Delivery O2 Flow Rate FiO2 02/16/20 06:00 97.5 76 16 95/63 (74) 97 Room Air Laboratory Data 24H LABS Laboratory Tests 2 02/15/20 08:52: Nucleated Red Blood Cells % (auto) 0.0 CBC/BMP Laboratory Tests 02/15/20 08:52 Microbiology Microbiology 02/06/20 Urine Culture - Final, Complete 02/06/20 Group B Streptococcus Screen (NIGEL) - Final, Complete 02/06/20 Wet Prep - Final, Complete YOBANY WATSON DO Feb 16, 2020 07:28
--- NOTE | 2020-02-16 07:29 | OBDS ---
[facility] Obstetrical Discharge Sum. Obstetrical Discharge Summary Denture Waxer/Provider: YOBANY WATSON DO VDRL: Non-Reactive Rh: Negative Rubella: Immune Sex: Female Anesthesia: Regional Anesthesia A/P, Post Course List any complications Admission diagnosis: 1. PPROM at 32+6wks gestation 2. History of prior section desiring repeat 3. Satisfied parity Discharge diagnosis: 1. Postop (status post repeat low transverse section with bilateral tubal ligation) Condition at Discharge: stable Discharge Instructions: Home Activity: as tolerated Diet: regular Medications: filled at [facility] Follow-up: 2 weeks Hospital course: Patient admitted for PPROM at 33+4 wks gestation. Patient received betamethasone course and placed on antibiotics for latency. Patient underwent repeat low transverse section with bilateral tubal ligation at 34 wks gestation. course uncomplicated and patient discharged on day #2. YOBANY WATSON DO Feb 14, 2020 10:34
[2020-02-16] MEDS: PRENATAL VITAMINS CHEWABLE TABLET PO SCH (09:16)
[2020-02-16] MEDS: FERROUS SULFATE 325MG TAB PO SCH (09:16)
[2020-02-16] MEDS: ENOXAPARIN 40MG/0.4ML SYRINGE (J1650 PER 10MG) SC SCH (09:17)
== END 2020-02-16 11:50 | disposition home or self-care (01) | DRG 784 ==
LOC: M LDO 08:28 → M LDI 09:13 → M OBS 02-09 19:00
PROVIDERS: ADMIT Registered Nurse Maternal Newborn; ATTEND Obstetrics & Gynecology
PROC: 0UB70ZZ Excision of Bilateral Fallopian Tubes, Open Approach (ICD-10-PCS; 2020-02-14)
PROC: 10D00Z1 Extraction of Products of Conception, Low, Open Approach (ICD-10-PCS; principal; 2020-02-14 08:00)
DX: O42.113 Preterm premature rupture of membranes, onset of labor more than 24 hours following rupture, third trimester (principal); D68.59 Other primary thrombophilia; O99.12 Other diseases of the blood and blood-forming organs and certain disorders involving the immune mechanism complicating childbirth; Z3A.32 32 weeks gestation of pregnancy; K90.0 Celiac disease; O99.62 Diseases of the digestive system complicating childbirth; O99.214 Obesity complicating childbirth; O34.211 Maternal care for low transverse scar from previous cesarean delivery; Z37.0 Single live birth; Z30.2 Encounter for sterilization

== ENCOUNTER 2020-12-20 14:45 | Emergency (ER) | payer OTHER ==
[~2020-12-20] VITALS: Ht 165.1 cm; Wt 81.8 kg
[2020-12-20] MEDS ORDERED: BUPR15TA (14:55)
[2020-12-20] MEDS ORDERED: TRAZ-252 (14:55)
[2020-12-20] MEDS ORDERED: D 50CAP2 (14:55)
[2020-12-20] MEDS ORDERED: VENLAFAXINE (14:55)
[2020-12-20] MEDS ORDERED: NS 1,000 ML IV ONE (16:20)
[2020-12-20 16:50] LABS: BASO % 0.5 % (0.0-1.0); EOS # 0.1 10^3/uL (0.0-0.5); EOS % 1.3 % (0.0-3.0); HEMATOCRIT 36.8 % (36.0-47.0); HEMOGLOBIN 12.1 g/dl (12.0-15.5); LYMPH # 1.7 10^3/uL (1.5-5.0); LYMPH % 27.7 % (24.0-44.0); MEAN CORPUSCULAR HEMOGLOBIN 28.5 pg (27.0-33.0); MEAN CORPUSCULAR HGB CONC 32.9 g/dl (32.0-36.5); MEAN CORPUSCULAR VOLUME 86.8 fl (80.0-96.0); MONO # 0.4 10^3/uL (0.0-0.8); MONO % 6.2 % (2.0-8.0); NEUTROPHILS # 3.9 10^3/uL (1.5-8.5); PLATELET COUNT, AUTOMATED 274 10^3/uL (150-450); RED BLOOD COUNT 4.24 10^6/uL (4.00-5.40); WHITE BLOOD COUNT 6.1 10^3/uL (4.0-10.0)
[2020-12-20 17:22] LABS: ALBUMIN 4.1 GM/DL (3.2-5.2); BILIRUBIN,DIRECT 0.1 MG/DL (0.0-0.2); BILIRUBIN,TOTAL 0.2 MG/DL (0.2-1.0); TOTAL PROTEIN 7.2 GM/DL (6.4-8.2)
[2020-12-20] MEDS ORDERED: ISOVUE-370 76% 100ML VIAL As Ordered ONE (17:33)
--- NOTE | 2020-12-20 18:17 | REPVR ---
PROCEDURE INFORMATION: Exam: CT Abdomen And Pelvis With Contrast Exam date and time: 12/20/2020 5:37 PM Age: 25 years old Clinical indication: Other: Gi bleed TECHNIQUE: Imaging protocol: Computed tomography of the abdomen and pelvis with contrast. Radiation optimization: All CT scans at this facility use at least one of these dose optimization techniques: automated exposure control; mA and/or kV adjustment per patient size (includes targeted exams where dose is matched to clinical indication); or iterative reconstruction. Contrast material: ISOVUE 370; Contrast volume: 100 ml; Contrast route: INTRAVENOUS (IV); COMPARISON: US BPP W/O NON STRESS TEST 02/06/2020 9:52 AM FINDINGS: Liver: There is a diffuse decrease in hepatic parenchymal density, consistent with steatosis. Gallbladder and bile ducts: Normal. No calcified stones. No ductal dilation. Pancreas: Normal. No ductal dilation. Spleen: Normal. No splenomegaly. Adrenal glands: Normal. No mass. Kidneys and ureters: Normal. No hydronephrosis. Stomach and bowel: Unremarkable. No obstruction. No mucosal thickening. Appendix: No evidence of appendicitis. Intraperitoneal space: There is minimal fluid in the cul-de-sac most likely physiologic. Clinical correlation to exclude other causes of cul-de-sac fluid suggested. Vasculature: Unremarkable. No abdominal aortic aneurysm. Lymph nodes: Unremarkable. No enlarged lymph nodes. Urinary bladder: Unremarkable as visualized. Reproductive: 4 cm thick-walled cyst right ovary likely functional. If there is any concern for complex cyst follow-up with nonemergent pelvic ultrasound suggested. Bones/joints: Unremarkable. No acute fracture. Soft tissues: Unremarkable. IMPRESSION: 1. There is a diffuse decrease in hepatic parenchymal density, consistent with steatosis. 2. 4 cm thick-walled cyst right ovary likely functional. If there is any concern for complex cyst follow-up with nonemergent pelvic ultrasound suggested. 3. Otherwise unremarkable. Electronically signed by: Kye Young On 12/20/2020 18:16:46 PM
[2020-12-20] MEDS ORDERED: ONDANSETRON 4MG/2ML VIAL IV ONE (18:45)
[2020-12-20] MEDS ORDERED: PREPARATION H SUPP (HEMORRHOID) PR PRN (19:00)
[2020-12-20] MEDS ORDERED: DOXY1TAB59 PO (19:23)
[2020-12-20 19:29] VITALS: BP 131/65
--- NOTE | 2020-12-25 08:09 | ED PDOC ---
Post-Departure Follow-Up radiology rpeor tfaxed to [facility] Traci Chin MD December 25, 2020 08:09
== END 2020-12-20 19:34 | disposition home or self-care (01) ==
LOC: M ED 14:45
DX: K64.8 Other hemorrhoids (principal); K76.0 Fatty (change of) liver, not elsewhere classified; N83.201 Unspecified ovarian cyst, right side; K90.0 Celiac disease; D68.59 Other primary thrombophilia; Z79.899 Other long term (current) drug therapy; Z91.018 Allergy to other foods; Z91.040 Latex allergy status
CPT/HCPCS: 74177; 80047; 80076; 83690; 84702; 85025; 96361; 96374; 99284; J2405; Q9967

== ENCOUNTER 2021-06-22 10:00 | Day surgery (SDC) | payer OTHER ==
[~2021-06-22] VITALS: Ht 165.1 cm; Wt 75.7 kg
[~2021-06-22 10:00] MED LIST changes: +ARIP1TAB4 PO; +BUPR15TA PO; +D 50CAP2 PO; +DOXY1TAB59 PO; +EFFE150C2 PO; +MODA200T15 PO; +NS 1,000 ML IV ONE; +PHAR25CA; +SEVOFLURANE INHAL SOLN 250 ML BTL As Ordered ONE; +TRAZ-252 PO; +VENLAFAXINE
[2021-06-22] MEDS ORDERED: propofoL 500 MG/50 ML VIAL As Ordered ONE (11:40)
[2021-06-22] MEDS ORDERED: LIDOCAINE 2% 100MG/5ML SDV (FOR ANES.) As Ordered ONE (11:40)
[2021-06-22] MEDS ORDERED: fentaNYL 100 MCG/2 ML INJECTION As Ordered ONE (11:40)
[2021-06-22 12:30] VITALS: BP 111/71
== END 2021-06-22 12:35 | disposition home or self-care (01) ==
LOC: M OPP 10:00
PROVIDERS: ATTEND Internal Medicine Gastroenterology
DX: R10.31 Right lower quadrant pain (principal); R19.4 Change in bowel habit; R10.13 Epigastric pain; D50.9 Iron deficiency anemia, unspecified; J45.909 Unspecified asthma, uncomplicated; Z87.891 Personal history of nicotine dependence; Z91.010 Allergy to peanuts; Z91.040 Latex allergy status; Z79.899 Other long term (current) drug therapy
CPT/HCPCS: 43239; 45378; 88305; J3010